=== PATIENT | male | born 1945 | race Caucasian/White ===

== ENCOUNTER 2018-07-12 09:32 | Emergency (ER) | payer OTHER ==
[2018-07-12] MEDS ORDERED: Lidocaine 1% w/Epinephrine 1:100K 30 ML VIAL ONE (09:54)
[2018-07-12] MEDS ORDERED: Bacitracin Zinc 1 Packet ONE (09:59)
== END 2018-07-12 10:33 ==
LOC: NAV ERS 09:32 → EDBD 09:32 → NAV ERS 10:33
DX: S51.811A Laceration without foreign body of right forearm, initial encounter (principal); S60.812A Abrasion of left wrist, initial encounter; I10 Essential (primary) hypertension; I25.10 Atherosclerotic heart disease of native coronary artery without angina pectoris; E11.9 Type 2 diabetes mellitus without complications; E78.5 Hyperlipidemia, unspecified; Z87.891 Personal history of nicotine dependence; Z79.899 Other long term (current) drug therapy; Z79.84 Long term (current) use of oral hypoglycemic drugs; W01.0XXA Fall on same level from slipping, tripping and stumbling without subsequent striking against object, initial encounter
CPT/HCPCS: 12002; J2001